=== PATIENT | female | born 1985 | race Two or more races ===

== ENCOUNTER 2024-08-29 12:51 | Emergency (ER) | payer MEDICAID, OTHER ==
[~2024-08-29] VITALS: Ht 162.6 cm; Wt 127.0 kg
--- NOTE | 2024-08-29 13:00 | ED.PDOC ---
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 Pt had the following course of events: - pt is currently 14 weeks , , 1 miscarriage, who states she has been having vaginal bleeding since 30 minutes prior and called EMS - pt states she was using the restroom, and states during bowel movement, she started to see blood in toilet bowl and states she "passed blood clots and marble like substance." - pt otherwise denies any associated symptoms upon EMS arrival - pt does state she had intercourse with partner last night - pt states she has established care with OB and is taking all her pre-reena vitals - pt has noted stable vitals in the ED Most recent intercourse was last night. past medical history: asthma, past surgical history: 2x c-sections, carpal tunnel, gallbladder medications: denies allergies: denies social history: denies tobacco use, denies Etoh use, denies drug use REVIEW OF SYSTEMS: CONSTITUTIONAL: Denies acute: fever, diaphoresis, chills, generalized weakness. HEAD: Denies acute: headache, photophobia Eyes: Denies acute: Double vision, vision loss, eye pain, eye discharge. EARS: Denies acute: tinnitus, hearing loss, ear discharge, ear pain, THROAT: Denies acute: sore throat, swelling, difficulty swallowing , pain with swallowing, change in voice. NECK: Denies acute: neck pain, neck swelling, stiff neck. HEART: Denies acute : chest pain, palpitations, LUNGS: Denies acute: SOB, wheezing, cough, hemoptysis ABDOMEN: Denies acute: abdominal pain, Nausea, Vomiting, diarrhea, melena , hematemesis, hematochezia SKIN: Denies acute: rash, redness, lesions, itchiness. EXTREMITIES: Denies acute: calf pain, numbness, tingling, weakness, denies pain in extremity. Denies acute: Low back pain. Neuro: Denies acute: focal neurological deficit, motor or sensory focal neurological deficit, tremors, seizure like activity, confusion, dizziness, change in mental status, loss of bowel or bladder function, cauda equina like symptoms. : Denies acute: dysuria, hematuria, flank pain, increase in urinary frequency. PSYCH: Denies acute: hallucination, suicidal ideation, homicidal ideation. FEMALE: Denies acute: foul odor, unusual discharge. PHYSICAL EXAM: General: no acute distress, awake and alert. Head: normocephalic, atraumatic. Neck: supple, trachea is midline, no swelling. Throat: Normal phonation. Eyes:, no erythema, no purulent discharge, no proptosis, no icterus. Heart: regular rate, regular rhythm, no significant murmur appreciated. Lungs: no apparent respiratory distress, Able to speak in full sentences. No wheezing, no rhonchi, no crackles. No stridors Clear to auscultation bilaterally. Abdomen: non tender to palpation, non distended, soft, no guarding, no rebound, + bowel sounds. Obese Neuro: Awake, Alert, oriented to name, self, situation, follows commands GCS=15. Speech is normal. Skin: no petechia, no purpura, no cyanosis, non-pale, not jaundice. Lower extremities: --no - Pitting edema no deformity, no focal swelling, no calf TTP. Makes eye contact. moves all four extremities. Face: no apparent facial droop. Ambulating in the ED independently. ED COURSE: - Time Seen by MD: 12:53 Reviewed Notes: Nurses Notes Allergies: Coded Allergies: Amoxicillin (Verified Allergy, Unknown, 08/29/24) Home Meds Active Scripts Cephalexin Monohydrate (Cephalexin) 500 Mg Cap, 500 MG PO Q8HR for 5 Days, #15 TAB Prov:JACKELINEMARY Stout DO 08/29/24 Information Source: Patient, Emergency Med Personnel Mode of Arrival: EMS Brought in by: EMS Was a procedure done? Was a procedure done?: No Differential Diagnosis ([facility]) Vaginal Bleeding: - Complete, - Incomplete, - I nevitable, - Missed, - Threatened, Abruptio Placentae, Blood Loss Anemia, Cervicitis, Dysmenorrhea, Ectopic , Hormonal, Menorrhagia, Menometrorrhagia, Menstrual Bleeding, Myomatous Uterus, PID, Placenta Previa, Precipitous Hct, Trauma, Other (Differential diagnosis includes but not limited to DU B, menorrhea, metromenorrhagia, neoplasm, coagulopathy,, trauma, miscarriage, placenta previa, placental abruption, ) X-Ray, Labs, Meds, VS Vital Signs Date Time Temp Pulse Resp B/P (MAP) Pulse Ox O2 Delivery O2 Flow Rate FiO2 08/29/24 15:24 98.2 63 18 106/67 (80) 98 98.2 08/29/24 14:00 79 12 109/72 (84) 93 08/29/24 13:17 76 16 112/62 (79) 93 08/29/24 13:15 99.0 72 14 112/62 (79) 97 99.0 08/29/24 13:15 72 14 97 Room Air* 0 21 08/29/24 13:14 98.4 84 18 111/86 (94) 100 98.4 Lab Test 08/29/24 13:30 08/29/24 13:21 Range/Units Urine Color Colorless Yellow Urine Clarity Clear Clear Urine pH 6.5 5.0-9.0 Urine Specific [place] 1.004 1.001-1.035 Urine Protein Trace H Negative Urine Ketones Negative Negative Urine Blood 3+ H Negative /uL Urine Nitrite Negative Negative Urine Bilirubin Negative Negative Urine Urobilinogen Normal Negative mg/dL Urine Leukocyte Esterase 1+ Negative /uL Urine RBC 32 0 - 4 /hpf Urine Microscopic WBC 6 H 0-5 /HPF Urine Squamous Epithelial Cells Few <5 /hpf Urine Bacteria None seen None Seen /hpf Urine Glucose Normal Normal mg/dL White Blood Count 7.5 4.4-10.8 10^3/uL Red Blood Count 4.63 4.0-5.20 10^6/uL Hemoglobin 13.5 12.2-16.2 g/dL Hematocrit 39.2 36.0-46.0 % Mean Corpuscular Volume 84.7 80.0-100.0 fL Mean Corpuscular Hemoglobin 29.2 28.0-32.0 pg Mean Corpuscular Hemoglobin Concent 34.5 32.0-36.0 g/dL Red Cell Distribution Width 14.6 H 11.8-14.3 % Platelet Count 203 140-450 10^3/uL Mean Platelet Volume 9.1 6.9-10.8 fL Neutrophils (%) (Auto) 71.2 37.0-80.0 % Lymphocytes (%) (Auto) 21.9 10.0-50.0 % Monocytes (%) (Auto) 5.0 0.0-12.0 % Eosinophils (%) (Auto) 1.4 0.0-7.0 % Basophils (%) (Auto) 0.5 0.0-2.0 % Neutrophils # (Auto) 5.4 1.6-8.6 10 ^3/uL Lymphocytes # (Auto) 1.6 0.4-5.4 10 ^3/uL Monocytes # (Auto) 0.4 0-1.3 10 ^3/uL Eosinophils # (Auto) 0.1 0-0.8 10 ^3/uL Basophils # (Auto) 0 0-0.2 10 ^3/uL Nucleated Red Blood Cells 0.0 % Sodium Level 140 136-145 mmol/L Potassium Level 3.7 3.5-5.1 mmol/L Chloride Level 108 H 98-107 mmol/L Carbon Dioxide Level 22 20-31 mmol/L Anion Gap 10 5-15 Blood Urea Nitrogen 6 L 9-23 mg/dL Creatinine 0.62 0.550-1.02 mg/dL Glomerular Filtration Rate Calc 118 >90 mL/min BUN/Creatinine Ratio 9.7 L 10.0-20.0 Serum Glucose 89 74-106 mg/dL Calcium Level 9.0 8.7-10.4 mg/dL Total Bilirubin 0.5 0.2-1.0 mg/dL Aspartate Amino Transferase (AST) 13 13-40 U/L Alanine Aminotransferase (ALT) 16 7-40 U/L Alkaline Phosphatase 41 L 46-116 U/L Total Protein 5.9 5.7-8.2 g/dL Albumin 3.9 3.2-4.8 g/dL Beta HCG, Quantitative 03095.6 H 1.5-4.2 mIU/mL [place] [id number] Ph: [phone] DIAGNOSTIC IMAGING Diagnostic Imaging Report : [id number] Signed PATIENT: ACCT: [id number] UNIT: [id number] : 1985 LOC: ER ROOM / BED: / AGE / SEX: 38 / F ADM STATUS: REG ER SERVICE 1335 ORDERING PHYSICIAN: MARY VIVEROS DO PROCEDURE(s): OB4US - OB ULTRASOUND COMP LESS 14WKS REASON: VAGINAL BLEEDING ORDER NUMBER(s): [id number], ACCESSION NUMBER(s): [id number] OB ULTRASOUND <14 WEEKS: HISTORY: VAGINAL BLEEDING TECHNIQUE: Multiple real-time grayscale sonographic images of the pelvis with duplex Doppler color flow, spectral and M-mode analysis. TRANSDUCERS: Transabdominal COMPARISON: None FINDINGS: The uterus measures 15.9 x 8.4 x 6.7 cm The cervix is closed. Right ovary is not visualized. Left ovary measures 4.3 x 2.8 x 4.0 cm with normal Doppler color flow. IUP single fetus at 10 weeks and 5 days average ultrasound age based on mean crown-rump length of 4.3 cm and gestational sac size of 4.6 cm heart rate detected at 173 beats per minute. Yolk sac is present. Amniotic fluid is subjectively within normal limits Katarzyna-gestational space: Unremarkable IMPRESSION: IUP single live fetus 10 weeks and 5 days AUA corresponding to an VERONIKA of 03/22/2025. No acute abnormality detected. ATED BY: FITZ DELA CRUZ MD DICTATED DATE/TIME: 08/29/24 1349 SIGNED BY: FITZ DELA CRUZ MD SIGNED DATE/TIME: 08/29/24 1349 CC: Time of 1ST Reevaluation: 15:08 Reevaluation 1ST: Resolved Patient Education/Counseling: Diagnosis, Treatment Family Education/Counseling: No Family Present Comments Patient presented with the above HPI.---vaginal bleeding ---workup was initiated. patient was found with the above mentioned diagnosis. the following medications were ordered: please refer to order lists of meds and tests obtained by myself Dr. Viveros. Patient ED course and VS have been stabilized. Patient has been reassessed in the ED and remained in a stable condition. Pertinent incidental findings were discussed with the patient and/or family. Patient/family voices understanding and is agreeable with plan. Patient has been observed in the ED adequate length of time to insure improvement/stability. Escalation of care considered: Consideration of escalation to observation or admission Patient was DISCHARGED home in a stable condition. All the reports of any imaging studies that were ordered by myself were reviewed by myself. Departure 1 Departure Time of Disposition: 14:28 Impression: Primary Impression: Vaginal bleeding during Additional Impressions: UTI in Threatened Disposition: 01 HOME / SELF CARE / HOMELESS Condition: Stable Additional Instructions: Additional discharge instructions: You MUST follow-up with your primary care/family doctor in 1 to 2 days. If you are unable to see your primary care/family doctor, please return to our emergency room for re-assessment and re-evaluation in 1 to 2 days. Return to the emergency room here in our facility or to the nearest ER [facility] if your symptoms change or worsen. CONSULTATIONS: you MUST Follow-up for consultation as soon as possible with: Gyne doctor in 1-2 days. Please call for appointment. You MUST call the consultants office yourself to make an appointment. You may need to arrange that through your insurance and/or your primary/family doctor. If you are unable to see the tanning consultant in 1 to 2 days, you must return to our emergency room (or any other ER of your choice) for re-assessment and re- evaluation. Adequate fluid hydration. Absolute pelvic rest. Repeat beta-hCG levels [place] 48-[place] [address] Repeat pelvic ultrasound in 4-5 days. Below is a copy of your radiological report for follow up: [place] [address] Ph: [phone] DIAGNOSTIC IMAGING Diagnostic Imaging Report : [id number] Signed PATIENT: MARINA ACCT: [id number] UNIT: [id number] : 1985 LOC: ER ROOM / BED: / AGE / SEX: 38 / F ADM STATUS: REG ER SERVICE 1335 ORDERING PHYSICIAN: MARY VIVEROS DO PROCEDURE(s): OB4US - OB ULTRASOUND COMP LESS 14WKS REASON: VAGINAL BLEEDING ORDER NUMBER(s): [id number], ACCESSION NUMBER(s): [id number] OB ULTRASOUND <14 WEEKS: HISTORY: VAGINAL BLEEDING TECHNIQUE: Multiple real-time grayscale sonographic images of the pelvis with duplex Doppler color flow, spectral and M-mode analysis. TRANSDUCERS: Transabdominal COMPARISON: None FINDINGS: The uterus measures 15.9 x 8.4 x 6.7 cm The cervix is closed. Right ovary is not visualized. Left ovary measures 4.3 x 2.8 x 4.0 cm with normal Doppler color flow. IUP single fetus at 10 weeks and 5 days average ultrasound age based on mean crown-rump length of 4.3 cm and gestational sac size of 4.6 cm heart rate detected at 173 beats per minute. Yolk sac is present. Amniotic fluid is subjectively within normal limits Katarzyna-gestational space: Unremarkable IMPRESSION: IUP single live fetus 10 weeks and 5 days AUA corresponding to an VERONIKA of 03/22/2025. No acute abnormality detected. ATED BY: FITZ DELA CRUZ MD DICTATED DATE/TIME: 08/29/24 1349 SIGNED BY: FITZ DELA CRUZ MD SIGNED DATE/TIME: 08/29/24 1349 CC: e-Prescriptions Cephalexin Monohydrate (Cephalexin) 500 Mg Cap 500 MG PO Q8HR for 5 Days, #15 TAB Prov: MARY VIVEROS DO 08/29/24 Critical Care Note Critical Care Time?: No I personally scribed for MARY VIVEROS DO ([email or web address]) on 08/29/24 at 13:00. Electronically submitted by Rina Mckenzie ([email or web address]). I personally scribed for MARY VIVEROS DO ([email or web address]) on 08/29/24 at 13:15. Electronically submitted by Rina Mckenzie ([email or web address]). I personally scribed for MARY VIVEROS DO ([email or web address]) on 08/29/24 at 13:28. Electronically submitted by Rina Mckenzie ([email or web address]). I personally scribed for MARY VIVEROS DO ([email or web address]) on 08/29/24 at 15:02. Electronically submitted by Rina Mckenzie ([employer]). MARY VIVEROS DO Aug 29, 2024 13:00
[2024-08-29 13:15] VITALS: PULSE 72; RESP 14; O2SAT 97
[2024-08-29 13:51] LABS: Basophils # (auto) 0 10 ^3/uL (0-0.2); Basophils % (auto) 0.5 % (0.0-2.0); Eosinophils # (auto) 0.1 10 ^3/uL (0-0.8); Eosinophils % (auto) 1.4 % (0.0-7.0); Hematocrit 39.2 % (36.0-46.0); Hemoglobin 13.5 g/dL (12.2-16.2); Lymphocytes # (auto) 1.6 10 ^3/uL (0.4-5.4); Lymphocytes % (auto) 21.9 % (10.0-50.0); Mean Corpuscular Hemoglobin 29.2 pg (28.0-32.0); Mean Corpuscular Hgb Conc. 34.5 g/dL (32.0-36.0); Mean Corpuscular Volume 84.7 fL (80.0-100.0); Monocytes # (auto) 0.4 10 ^3/uL (0-1.3); Neutrophils # (auto) 5.4 10 ^3/uL (1.6-8.6); Neutrophils % (auto) 71.2 % (37.0-80.0); Platelet Count (auto) 203 10^3/uL (140-450); Red Blood Cells 4.63 10^6/uL (4.0-5.20); Red Cell Distribution Width 14.6 % (11.8-14.3); White Blood Cell 7.5 10^3/uL (4.4-10.8)
--- NOTE | 2024-08-29 13:51 | DVH ---
OB ULTRASOUND <14 WEEKS: HISTORY: VAGINAL BLEEDING TECHNIQUE: Multiple real-time grayscale sonographic images of the pelvis with duplex Doppler color f low, spectral and M-mode analysis. TRANSDUCERS: Transabdominal COMPARISON: None FINDINGS: The uterus measures 15.9 x 8.4 x 6.7 cm The cervix is closed. Right ovary is not visualized. Left ovary measures 4.3 x 2.8 x 4.0 cm with normal Doppler color flow. IUP single fetus at 10 weeks and 5 days average ultrasound age based on mean crown-rump length of 4. 3 cm and gestational sac size of 4.6 cm heart rate detected at 173 beats per minute. Yolk sac is present. Amniotic fluid is subjectively within normal limits Katarzyna-gestational space: Unremarkable IMPRESSION: IUP single live fetus 10 weeks and 5 days AUA corresponding to an VERONIKA of 03/22/2025. No acute abnormality detected.
[2024-08-29 14:18] LABS: Alanine Aminotransferase 16 U/L (7-40); Albumin 3.9 g/dL (3.2-4.8); Anion Gap 10 (5-15); BUN/Creatinine Ratio 9.7 (10.0-20.0); Carbon Dioxide 22 mmol/L (20-31); Glucose 89 mg/dL (74-106); Potassium 3.7 mmol/L (3.5-5.1); Sodium 140 mmol/L (136-145); Total Protein 5.9 g/dL (5.7-8.2)
[2024-08-29 14:19] LABS: Bilirubin, Total 0.5 mg/dL (0.2-1.0)
[2024-08-29 14:20] LABS: Alkaline Phosphatase 41 U/L (46-116); Aspartate Aminotransferase 13 U/L (13-40); Blood Urea Nitrogen 6 mg/dL (9-23); Chloride 108 mmol/L (98-107)
[2024-08-29 14:22] LABS: Urine Bacteria None Seen /hpf (None Seen)
[2024-08-29 14:31] LABS: Urine Blood 3+ /uL (Negative); Urine Clarity Clear (Clear); Urine Color Colorless (Yellow); Urine Protein, UAD TRACE (Negative); Urine Specific Gravity 1.004 (1.001-1.035); Urine Squamous Epithelial Cell FEW /hpf (<5); Urine Urobilinogen Normal (Negative); Urine WBC 6 /HPF (0-5); Urine pH 6.5 (5.0-9.0)
[2024-08-29] MEDS ORDERED: CEPH500C PO (15:09)
[2024-08-29 15:24] VITALS: BP 106/67; PULSE 63; RESP 18; TEMP 98.2; O2SAT 98
== END 2024-08-29 15:37 | disposition home or self-care (01) ==
LOC: ER 12:51 → EDBD 12:51 → ER 15:30
DX: O20.0 Threatened abortion (principal); O09.521 Supervision of elderly multigravida, first trimester; O23.41 Unspecified infection of urinary tract in pregnancy, first trimester; O99.511 Diseases of the respiratory system complicating pregnancy, first trimester; N39.0 Urinary tract infection, site not specified; J45.909 Unspecified asthma, uncomplicated; Z88.0 Allergy status to penicillin; Z3A.10 10 weeks gestation of pregnancy
CPT/HCPCS: 36415; 76801; 80053; 81001; 84702; 85025; 86850; 86900; 86901